=== PATIENT | female | born 1965 | race Caucasian/White ===

== ENCOUNTER 2021-04-08 09:15 | Emergency (ER) | payer MEDICARE ==
[~2021-04-08] VITALS: Ht 157.5 cm; Wt 74.8 kg
[2021-04-08] MEDS ORDERED: COLCHICINE0.6 M1 PO (10:37)
[2021-04-08] MEDS ORDERED: HYDROCODON-ACE1 EA11 PO (10:37)
== END 2021-04-08 10:55 | disposition home or self-care (01) ==
LOC: ED 09:15
DX: M10.9 Gout, unspecified (principal); I10 Essential (primary) hypertension
CPT/HCPCS: 99283; A9270